=== PATIENT | male | born 1965 | race Caucasian/White ===

== ENCOUNTER 2017-07-09 22:33 | Inpatient (IN) | payer OTHER ==
[~2017-07-09] VITALS: Ht 177.8 cm; Wt 98.0 kg
[~2017-07-09 22:33] MED LIST: CALAN PO; CLARITIN PO; COZAAR100 MG PO; HYDROCODONE-CH115 ML PO; LEVAQUIN PO; LOSARTAN POTASS25 MG; METOPROLOL SUCC50 MG; PROVENTIL S1 ML/5 MG; Pulmicort 0.5 MG/2 ML AMPUL IH; Xopenex 1.25 MG/3 ML SOLUTION IH
[2017-07-09] MEDS ORDERED: TOPROL XL100 M1 PO (22:53)
[2017-07-09] MEDS ORDERED: PROVENTIL HFA6.7 GM IH (22:55)
[2017-07-09] MEDS ORDERED: BUDEO.25 IH (22:55)
[2017-07-14] MEDS ORDERED: IPRATROPIU0.2 MG/1 M IH (13:14)
[2017-07-14] MEDS ORDERED: ALPRAZOLAM0.25 MG PO (13:14)
[2017-07-14] MEDS ORDERED: Intestinex CAP PO (13:14)
[2017-07-14] MEDS ORDERED: CLOTRIMAZOLE10 MG MM (13:14)
[2017-07-14] MEDS ORDERED: HYDROCHLOROTHIA25 MG PO (13:14)
[2017-07-14] MEDS ORDERED: XOPENEX0.63 MG/3 IH (13:14)
[2017-07-14] MEDS ORDERED: LOSARTAN POTAS100 MG PO (13:14)
[2017-07-14] MEDS ORDERED: BENZONATATE200 M1 PO (13:14)
[2017-07-14] MEDS ORDERED: GUAIFENESI100 MG/52 PO (13:14)
== END 2017-07-14 13:29 | disposition home or self-care (01) | DRG 193 ==
LOC: ER 22:33 → MEDJ 07-10 10:36 → SEC-K 07-10 10:36 → MEDJ 07-11 15:22
PROC: 4A033R1 Measurement of Arterial Saturation, Peripheral, Percutaneous Approach (ICD-10-PCS; principal; 2017-07-10)
PROC: 3E0F7GC Introduction of Other Therapeutic Substance into Respiratory Tract, Via Natural or Artificial Opening (ICD-10-PCS; 2017-07-10)
PROC: BB24ZZZ Computerized Tomography (CT Scan) of Bilateral Lungs (ICD-10-PCS; 2017-07-10)
PROC: 8E0ZXY6 Isolation (ICD-10-PCS; 2017-07-10)
PROC: B246ZZZ Ultrasonography of Right and Left Heart (ICD-10-PCS; 2017-07-11)
DX: J10.1 Influenza due to other identified influenza virus with other respiratory manifestations (principal); B20 Human immunodeficiency virus [HIV] disease; J44.1 Chronic obstructive pulmonary disease with (acute) exacerbation; J44.0 Chronic obstructive pulmonary disease with (acute) lower respiratory infection; J20.9 Acute bronchitis, unspecified; I10 Essential (primary) hypertension; F17.210 Nicotine dependence, cigarettes, uncomplicated

== ENCOUNTER → 2018-08-19 | Emergency (ER) | payer OTHER ==
[~2018-08-19] VITALS: Ht 177.8 cm; Wt 104.3 kg
[~2018-08-19] MED LIST changes: +ALBUTEROL2.5 MG/3 M IH; +ALPRAZOLAM0.25 MG PO; +BENZONATATE200 M1 PO; +BUDEO.25 IH; +CLOTRIMAZOLE10 MG MM; +GUAIFENESI100 MG/52 PO; +HYDROCHLOROTHIA25 MG PO; +IPRATROPIU0.2 MG/1 M IH; +Intestinex CAP PO; +LEVAQUIN750 MG PO; +LOSARTAN POTAS100 MG PO; +MEDROL4 MG PO; +PROVENTIL HFA6.7 GM IH; +TOPROL XL100 M1 PO; +TUSSIONEX PENN115 ML PO; +XOPENEX0.63 MG/3 IH
== END | disposition home or self-care (01) ==
LOC: ER 10:20
DX: J45.998 Other asthma (principal)

== ENCOUNTER 2018-08-21 10:07 | Inpatient (IN) | payer OTHER ==
[~2018-08-21] VITALS: Ht 25.4 cm; Wt 5.0 kg
[~2018-08-21 10:07] MED LIST changes: -ALBUTEROL2.5 MG/3 M IH; -LEVAQUIN750 MG PO; -MEDROL4 MG PO; -TUSSIONEX PENN115 ML PO
[2018-08-26] MEDS ORDERED: TUSSIONEX PENN115 ML PO (00:13)
[2018-08-26] MEDS ORDERED: LEVAQUIN750 MG PO (00:13)
[2018-08-26] MEDS ORDERED: ALBUTEROL2.5 MG/3 M IH (08:32)
[2018-08-26] MEDS ORDERED: IPRATROPIU0.2 MG/1 M IH (08:33)
[2018-08-26] MEDS ORDERED: MEDROL4 MG PO (08:36)
== END 2018-08-26 13:13 | disposition home or self-care (01) | DRG 977 ==
LOC: ER 10:07 → MEDI 17:42 → MEDJ 17:42
PROVIDERS: ADMIT Internal Medicine Cardiovascular Disease
PROC: 3E0F7GC Introduction of Other Therapeutic Substance into Respiratory Tract, Via Natural or Artificial Opening (ICD-10-PCS; principal; 2018-08-21)
PROC: 4A033R1 Measurement of Arterial Saturation, Peripheral, Percutaneous Approach (ICD-10-PCS; 2018-08-21)
PROC: BB24ZZZ Computerized Tomography (CT Scan) of Bilateral Lungs (ICD-10-PCS; 2018-08-21)
DX: B20 Human immunodeficiency virus [HIV] disease (principal); J45.22 Mild intermittent asthma with status asthmaticus; J44.1 Chronic obstructive pulmonary disease with (acute) exacerbation; J45.901 Unspecified asthma with (acute) exacerbation; J10.1 Influenza due to other identified influenza virus with other respiratory manifestations; I10 Essential (primary) hypertension; F17.200 Nicotine dependence, unspecified, uncomplicated